=== PATIENT | male | born 1965 | race Caucasian/White ===

== ENCOUNTER 2016-05-21 11:30 | Day surgery (SDC) | payer OTHER ==
[~2016-05-21] VITALS: Ht 188 cm; Wt 73.8 kg
[~2016-05-21 11:30] MED LIST: CeFAZolin Inj 2 GM in IV Premix 1 EACH IV ONE; GABA-502 PO; GABA600T2 PO; GENT30CR TP; INSU100I13 SUBQ; LISI10TA PO; Lactated Ringer's 1,000 ML IV SCH; METF500T4 PO; OXYC-466 PO; OXYC15TA79 PO; SIMV10TA4 PO
[2016-05-21] MEDS ORDERED: fentaNYL-PF 50 mCg/mL 2 mL Inj ONE (11:31)
[2016-05-21] MEDS ORDERED: Propofol 10,000 mCg/mL 20 mL Inj ONE (11:31)
[2016-05-21] MEDS ORDERED: Phenylephrine/NS 100 mCg/mL 10 mL Syringe IVPUSH ONE (11:31)
[2016-05-21] MEDS ORDERED: Lidocaine PF 1% 30 mL Inj ONE (11:31)
[2016-05-21] MEDS ORDERED: EPHEDrine/NS 5 mg/mL 5 mL Syringe ONE (11:31)
[2016-05-21] MEDS ORDERED: Insulin LISPRO 300 Unit/3 mL Inj ONE (12:36)
[2016-05-21] MEDS ORDERED: CeFAZolin Inj 2 gm / 50mL D5W IV ONE (12:37)
[2016-05-21 12:43] VITALS: BP 117/75; PULSE 92; RESP 16; O2SAT 96
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
[2016-05-21] MEDS ORDERED: Lactated Ringer's 1,000 ML IV SCH (13:58)
[2016-05-21] MEDS ORDERED: Lactated Ringer's 500 ML IV PRN (13:58)
[2016-05-21] MEDS ORDERED: HYDROmorphone 1 mg/mL Inj IVPUSH PRN (14:00)
[2016-05-21] MEDS ORDERED: EPHEDrine Sulfate 50 mg/mL Inj IVPUSH PRN (14:00)
[2016-05-21] MEDS ORDERED: hydrALAZINE 20 mg/mL Inj IVPUSH PRN (14:00)
[2016-05-21] MEDS ORDERED: Ondansetron 2 mg/mL 2 mL Inj IVPUSH PRN (14:00)
[2016-05-21] MEDS ORDERED: Phenylephrine 10,000 mCg/mL Inj IVPUSH PRN (14:00)
[2016-05-21] MEDS ORDERED: MetoCLOpramide 5 mg/mL 2 mL Inj IVPUSH PRN (14:00)
[2016-05-21] MEDS ORDERED: fentaNYL-PF 50 mCg/mL 2 mL Inj IVPUSH PRN (14:00)
[2016-05-21] MEDS ORDERED: Labetalol 5 mg/mL 4 mL Inj IV PRN (14:00)
[2016-05-21] MEDS ORDERED: Lidocaine 2%-Epi 1:100,000 20 mL Inj NERVEBLOCK ONE (14:25)
[2016-05-21 15:25] VITALS: BP 142/84; PULSE 78; RESP 15; O2SAT 99
[2016-05-21 15:28] VITALS: BP 125/77; PULSE 84; RESP 16; O2SAT 99
[2016-05-21] MEDS ORDERED: HYDR2TAB28 PO (15:32)
--- NOTE | 2016-05-21 15:40 | PCM.PODPO ---
Podiatry Operative Report Date of Service: May 21, 2016 Date of Service May 21, 2016 Pre Operative Diagnosis Chronic diabetic ulcer sub 5th metatarsal head with metatarsalgia, left foot Post Operative Diagnosis Chronic diabetic ulcer sub 5th metatarsal head with metatarsalgia, left foot Procedure Left 5th metatarsal osteotomy Left plantar diabetic ulcer excision through skin and subcutaneous tissue. Surgeon Surgeon: Katty Bello DPM Assistants: None Indication for Procedure Pain, non-healing ulcer Findings Adhesions, hypertrophic 5th MTP joint capsule, dorsally subluxed 5th toe. Details of Procedure The patient was identified in the preoperative holding area and brought back to the operating room. He was placed on the operating table in supine position. IV sedation was initiated and the time out protocol completed. He was converted to general anesthesia due to restless legs. The patients name and site of surgery were confirmed. The left foot was prepped and draped in the usual aseptic manner. Local anesthetic was administered in the 5th ray distribution No tourniquet was necessary. Bleeding vessels were cauterized as needed and neurovascular structures retracted where possible throughout the procedure. The incision was made over the 5th metatarsophalangeal joint, deepened to joint capsule. The capsule was incised linearly, reflected laterally off of the metatarsal head and neck, and retracted. A bone saw was used to create a linear osteotomy from distal dorsal to proximal plantar surface and another parallel one to remove a section of bone, significant shortening and dorsiflexion of the metatarsal head achieved, then fixated temporarily with a K-wire. Cortical screw fixation failed, and 2 crossed K-wires were inserted across the osteotomy and overhanging bone removed with a rongeur. The K-wires were left slightly prominent. The plantar ulcer 1cm x 0.8cm and 0.5cm deep was excised through skin and subcutaneous tissue to a size of 1.2cm x1cm and 0.7cm deep to achieve a viable base. Irrigation was performed with normal saline. The deep soft tissue was reapproximated with Vicryl suture, the skin closed with Prolene. Dressing consisted of sterile silk, saline moistened gauze, Kerlix and lightly compressed Coban. The patient was weaned off of anesthesia and transported to the recovery room with vital signs stable and vascular status to the operative foot intact. Grafts, Implants: Implants-See Implant Record Complications There were no periprocedural complications identified. Condition Stable Anesthetic Administered: GA Drains: None Catheters: None Output, Estimated Blood Loss: 10 (ml) Blood Admin during surgery: No Surgical Cast or Splint: Post-op Boot Surgical Specimen Removed: No Specimen sent to Pathology: No Post Operative Plan Touchdown weightbearing with postop shoe in place. Keep operative dressing clean , dry, and intact. Hydromorphone to bridge perioperative pain control, then wean off to Percocet and wean off completely within 30 days. Katty Bello DPM May 21, 2016 15:40
[2016-05-21 15:43] VITALS: BP 128/93; PULSE 95; RESP 16; O2SAT 97
--- NOTE | 2016-05-21 15:43 | PCM.ANEP1 ---
Post Anesthesia Phase 1 PACU Phase 1 Assessment Date of Service: May 21, 2016 Vital Signs Vital Signs Date Time Temp Pulse Resp B/P Pulse Ox O2 Delivery O2 Flow Rate FiO2 05/21/16 15:28 84 16 125/77 99 Simple Mask 8 05/21/16 15:25 36.3 78 15 142/84 99 Simple Mask 8 05/21/16 12:43 36.8 92 16 117/75 96 Room Air Anesthetic Administered: GA Level of Alertness: Awake, talking DENNISON's with Equal Strength: Yes Pain: Yes Nausea or Vomiting: No Oxygen Delivery: Simple Mask Lungs: Clear to Auscultation Reji Hayward MD May 21, 2016 15:43
--- NOTE | 2016-05-21 15:43 | PCM.ANEP2 ---
Post Anesthesia Evaluation ASA/CMS Post Anesthesia Date of Service: May 21, 2016 VS in Patient's Normal Range?: Yes Resp Stable; Airway Patent?: Yes CV Function & Hydration Stable: Yes Mental Status Recovered?: Yes Pain control Satisfactory?: Yes N/V Control Satisfactory?: Yes Reji Hayward MD May 21, 2016 15:43
[2016-05-21 16:05] VITALS: BP 147/86; PULSE 84; RESP 16; O2SAT 100
== END 2016-05-21 23:59 | disposition home or self-care (01) ==
LOC: SAS 11:30
PROVIDERS: ATTEND Podiatrist
DX: E11.621 Type 2 diabetes mellitus with foot ulcer (principal); J45.909 Unspecified asthma, uncomplicated; R51 Headache; R12 Heartburn; F32.9 Major depressive disorder, single episode, unspecified; F17.210 Nicotine dependence, cigarettes, uncomplicated; Z79.4 Long term (current) use of insulin; Z79.899 Other long term (current) drug therapy
CPT/HCPCS: 28308; J0690; J1815; J2250; J2370; J3010; J7120

== ENCOUNTER → 2016-11-05 | Day surgery (SDC) | payer OTHER ==
[~2016-11-05] VITALS: Ht 188 cm; Wt 75.0 kg
[~2016-11-05] MED LIST changes: +Bupivacaine-MPF 0.5% 30 mL Inj INFILTRATE ONE; +Dexamethasone 4 mg/mL Inj IVPUSH PRN; +EPHEDrine Sulfate 50 mg/mL Inj IVPUSH PRN; -GABA-502 PO; -GABA600T2 PO; -GENT30CR TP; +HYDROmorphone 1 mg/mL Inj IVPUSH PRN; +INSU100I18 SUBQ; +Labetalol 5 mg/mL 20 mL Inj IV PRN; +Lactated Ringer's 500 ML IV PRN; +Lidocaine 1%-Epi 1:100,000 20 mL Inj NERVEBLOCK ONE; +MetoCLOpramide 5 mg/mL 2 mL Inj IVPUSH PRN; -OXYC-466 PO; -OXYC15TA79 PO; +OXYC5CAP4 PO; +Ondansetron 2 mg/mL 2 mL Inj IVPUSH PRN; +PREG25CA PO; +Phenylephrine 10,000 mCg/mL Inj IVPUSH PRN; +Propofol 10 mg/mL 20 mL Inj ONE; +fentaNYL-PF 50 mCg/mL 2 mL Inj IVPUSH PRN; +fentaNYL-PF 50 mCg/mL 2 mL Inj ONE; +oxyCODONE-Acetamin 5-325 mg Tablet PO PRN
[2016-11-05] MEDS: Lactated Ringer's 1,000 ML IV SCH ×2 (06:12→07:25)
[2016-11-05 06:27] VITALS: BP 101/62; PULSE 81; RESP 18; O2SAT 99
--- NOTE | 2016-11-05 06:40 | PCM.HPANE ---
Patient Data Surgeon Admitting Provider: Attending Provider:Katty Bello DPM Primary Care Physician:Pamela Christianson MD Other Provider:Janis Leyva Anesthesia Reason for Visit Left Foot Hardware Complication Ht/WT & BMI Height (Feet): 6 Height (Inches): 2.00 Weight (Kilograms): 75.0 Body Mass Index 21.00 Allergies Coded Allergies: No Known Allergies (Verified Allergy, Unknown, 11/04/16) Past Anesthesia History Anesthesia History: Denies:: Abnormal Airway, Anesthesia Reactions, Difficult Intubation, Fam Anesthesia Reaction, Fam Malignant Hypertherm, Malignant Hyperthermia Diabetes History Hx Diabetes?: Yes Type of Diabetes: Type II Glycemic Control: Insulin & Oral Medication MRSA MRSA: No Medications Reported Medications Insulin Lispro (HumaLOG U100 Insulin Pen)100 Unit/1 Ml Insuln.pen10 Unit SUBQ TIDWM #1 PENINJ Ref 0 Blood Sugar Lispro Correction <151 0 units 151-175 1 unit 176-200 2 units 201-225 3 units 226-250 4 units 251-275 5 units 276-300 6 units 301-325 7 units 326-350 8 units 351-375 9 units 376-400 10 units >400 12 units Check blood sugars before meals and at bedtime. Use correction factor only before meals. 11/05/16 Pregabalin (Lyrica)25 Mg Ptarllt39 Mg PO BID 30 Days Ref 0 11/04/16 oxyCODONE 5 Mg Enkqyvq05 Mg PO Q4H PRN For Pain Ref 0 11/04/16 Insulin Glargine (Lantus U100 Solostar Insulin Pen)100 Unit/1 Ml Insuln.pen40 Unit SUBQ QPM #1 PENINJ Ref 0 05/17/16 Lisinopril 10 Mg Hahktr76 Mg PO DAILY 11/26/15 Simvastatin 10 Mg Knwqsy89 Mg PO DAILY 11/26/15 Metformin 500 Mg Tablet1,000 Mg PO BID 10/25/15 Discontinued Reported Medications oxyCODONE 5 Mg Capsule5 Mg PO Q4H PRN For Pain Ref 0 11/04/16 Gabapentin 600 Mg Wykdbb341 Mg PO HS Ref 0 POSTOP 05/17/16 oxyCODONE 15 Mg Uhpxjq80 Mg PO Q6H PRN For Pain Ref 0 POSTOP 05/17/16 oxyCODONE-Acetaminophen 10-325 mg 1 Each Tablet1 Tablet PO Q6H PRN For Pain Ref 0 05/17/16 Gentamicin Sulfate 15 Gm Cream..g.15 Gm TP DAILY 0.1% 05/17/16 Gabapentin 300 Mg Vqcinlf109 Mg PO HS Ref 0 01/12/16 Discontinued Scripts Hydromorphone 2 Mg Tablet2 Mg PO Q4H PRN For Breakthrough Pain #48 TABLET Ref 0 Prov:Katty Bello DPM 05/21/16 History History of ENT Problems?: No HEENT History: Denies:: Abnormal Airway Difficult Intubation Dysphagia Hearing Problem Sinus Problem TMJ Denture Type: None Full- Upper Partial- Upper Teeth Condition: Within Normal Limits Hx of Heart Problems?: Yes Cardiovascular History: Positive for:: Hypertension Denies:: Cardiac Surgery Chest Pain Congestive Heart Failure Edema Heart Murmur Irregular Heartbeat Pacemaker Thrombophlebitis Hx of Respiratory Problem?: Yes Respiratory History: Positive for:: Asthma (CHILDHOOD) Denies:: COPD Chest Surgery Dyspnea Emphysema Hemoptysis Oxygen Administration Pneumonia Pulmonary Embolism Tuberculosis Use of C-PAP Machine Hx Neurologic Problems?: Yes Neurological History: Denies:: Alzheimer's Disease CVA Dementia Dizziness Headaches Multiple Sclerosis Parkinson's Disease Seizures TIA Hx of GI Problems?: Yes Hx of Problems?: No Genitourinary History: Denies:: HX of Hemodialysis Kidney Stones Urinary Tract Infection HX of Peritoneal Dialysis: No Male Hx: Denies:: Prostate Problems Scrotal Mass Testicular Surgery Skin History: Denies:: History Skin Disorders? Pressure Ulcers Hx Musculoskeletal Problems?: Yes Musculoskeletal History: Positive for:: Back Injury (fell down stairs 3 week ago fx L1) Joint Replacement (left hand digit #3) Musculoskeletal Trauma (fell down stairs 3 week ago fx L1) Denies:: Degenerative Joint Fibromyalgia Myasthenia Gravis Osteoarthritis Rheumatoid Arthritis Systemic Lupus Hx of Psycho/Social Problems?: No Psycho Social History: Positive for:: Hx Depression Denies:: Anxiety Bipolar Disorder Suicide Attempt Hx Surgeries?: Yes (foot ulcer) Hx Any Other Health Problems?: Yes Other History: Positive for:: Hospitalization (may 2016) Denies:: Cancer Endocrine Disease Thyroid Disease History Blood Transfusions: Positive for:: Accept Blood Products? Denies:: Blood Transfusions Hx Diabetes: Yes Hx Alcohol Use: NoHx Substance Use: Yes (ocassionally) Smoking Status: Light Tobacco Smoker Have You Smoked inLast 12 mo: YesApprox How Many Cigarettes/day: 10 Stop/Bang S-Snoring: Do You Snore Loudly: Yes T-Tired: feel tired, fatigued: Yes O-Obsered: Observed not breath: No P-Blood Pressure: treated: Yes B- Body Mass Index > 35 kg/m2: No A- Age over 50: Yes N- Neck Large Circumference: No G- Gender Male: Yes ROB Total Score: 5 ROB Risk Assessment: High Risk, =/>3 Yes ROB Category 4 OutPt Procedure: Yes Risk Assessment Category Category 1A: Patient has history of documented sleep apnea, and HAS NOT received any narcotic, sedative or anesthesia administration during this stay. Category 1B: Patient has history of documented sleep apnea, and HAS received any narcotic , sedative or anesthesia administration during this stay Category 2: Patient has SUSPECTED Obstructive Sleep Apnea, and HAS received any narcotic , sedative or anesthesia administration during this stay. Category 3: Patient has SUSPECTED Obstructive Sleep Apnea and HAS NOT received narcotic, sedative or anesthesia administration during this stay. Category 4: Outpatient in Procedural Areas with known sleep apnea or who screen positive for High Risk via the STOP/BANG questionnaire. Exam Exam Vital Signs Vital Signs Date Time Temp Pulse Resp B/P Pulse Ox O2 Delivery O2 Flow Rate FiO2 11/05/16 06:27 36.3 81 18 101/62 99 Room Air General Appearance: Alert, Oriented X3, Cooperative, No Acute Distress HEENT/AIRWAY: MP 2 Lungs: Clear to Auscultation, Normal Air Movement Heart: Exam Unremarkable, Regular Rate/Rhythm, No Murmurs/Rubs/Gallops Meds/Labs/Diagnostics Admission Meds Current Medications Lactated Ringer's (Lr) 1,000 ml @ 120 mls/hr Q8H20M IV Last administered on t 06:12; Start 11/05/16 at 05:00; Stop 11/05/16 at 13:19 Plan Impression Patient chart reviewed, patient interviewed and anesthestic plan with risks, benefits, and alternatives discussed, and informed consent obtained. ASA Physical Status: ASA2 Mod Systemic Disease Anesthetic Plan: MAC Bene/Risks/Altern/Consents: Yes HP Complete Prior to Induction: Yes Amanuel Jarquin MD Nov 05, 2016 06:40
[2016-11-05 08:08] VITALS: BP 91/59; PULSE 80; RESP 13; O2SAT 97
[2016-11-05 08:10] VITALS: BP 91/62; PULSE 83; RESP 17; O2SAT 98
[2016-11-05 08:15] VITALS: BP 93/63; PULSE 75; RESP 21; O2SAT 97
--- NOTE | 2016-11-05 08:20 | PCM.PODPO ---
Podiatry Operative Report Date of Service: Nov 05, 2016 Date of Service Nov 05, 2016 Pre Operative Diagnosis Hardware loosening, osteolysis, left 5th metatarsal Post Operative Diagnosis Hardware loosening, osteolysis, left 5th metatarsal, likely osteomyelitis Procedure Excision of 2 K wires, bone culture, left fifth metatarsal Surgeon Surgeon: Katty Bello DPM Assistants: Thomas Schneider, 4 Indication for Procedure Recurrent ulceration through lateral left foot incision with radiographic changes of osteolysis Findings Degenerated bone, ulcer probing to bone with sinus tract. Loose K wires. Loss of normal anatomic contour of the fifth metatarsal. No purulence. Details of Procedure The patient was identified in the preoperative holding area and brought back to the operating room. He was placed on the operating table in supine position. The timeout protocol was completed in the patient's name and site of surgery identified. IV sedation was initiated, the patient's foot anesthetized with 0.5 % Marcaine plain. The left foot was prepped and draped in usual aseptic manner. An incision was made on the dorsolateral aspect of the left fifth metatarsal, excising the open ulceration in the process. The sinus tract was identified bleeding straight to the portion of bone with erosions evident on x-ray. Part of the previous osteotomy was not healed. The 2 K wires were easily identified and removed. The bone was found to be soft and degenerated. A small fragment of bone was excised with the rongeur and sent for culture. The remaining soft portion of bone was also excised, where identifiable from periosteal reaction. The wound was irrigated with 1 L of normal saline. A closure was done with deep vertical sutures and simple interrupted sutures using 3-0 Prolene, avoiding absorbable suture to avoid future infection. The wound was cleansed, a dressing consisting of Santo silk, 4 x 4 normal saline moistened gauze, Kerlix , and Coban was applied. The left foot was placed into a postoperative shoe, the patient weaned off of IV sedation and taken to the PACU with vital signs stable and the vascular status to the left foot appearing intact. Periods of sleep apnea were identified during the sedation period. Grafts, Implants: None Complications There were no periprocedural complications identified. Condition Stable Anesthetic Administered: MAC Catheters: None Output, Estimated Blood Loss: 10 (ml) Blood Admin during surgery: No Surgical Specimen Removed: Yes Specimen sent to Pathology: No Surgical Specimen description: Bone culture, fragment of fifth metatarsal Post Operative Plan The patient will be weightbearing as tolerated in a postoperative shoe. He is to keep the dressing clean, dry, and intact until his follow-up visit in 1 week. He takes oxycodone on a recurrent basis and no further additional opiate medication will be prescribed today. Katty Bello DPM Nov 05, 2016 08:20
--- NOTE | 2016-11-05 08:24 | PCM.ANEP1 ---
Post Anesthesia PACU Phase 1 Assessment Vital Signs Vital Signs Date Time Temp Pulse Resp B/P Pulse Ox O2 Delivery O2 Flow Rate FiO2 11/05/16 08:15 75 21 93/63 97 Room Air 11/05/16 08:10 83 17 91/62 98 Room Air 11/05/16 08:08 36.7 80 13 91/59 97 Room Air 11/05/16 06:27 36.3 81 18 101/62 99 Room Air Anesthetic Administered: MAC Level of Alertness: Awake, talking DENNISON's with Equal Strength: Yes Pain: No Nausea or Vomiting: No CV Function & Hydration Stable: Yes Airway Device: Lungs: Clear to Auscultation, Normal Air Movement PACU Phase 2 Assessment Complications: No Follow up Care: No Patient Instructions Provided: N/A Amanuel Jarquin MD Nov 05, 2016 08:24
[2016-11-05 08:26] VITALS: BP 102/85; PULSE 79; RESP 16; O2SAT 100
== END | disposition home or self-care (01) ==
LOC: SAS 05:51
PROVIDERS: ATTEND Podiatrist
DX: T85.848D Pain due to other internal prosthetic devices, implants and grafts, subsequent encounter (principal); T84.038D Mechanical loosening of other internal prosthetic joint, subsequent encounter; M89.572 Osteolysis, left ankle and foot; E11.42 Type 2 diabetes mellitus with diabetic polyneuropathy; Z89.421 Acquired absence of other right toe(s); F17.210 Nicotine dependence, cigarettes, uncomplicated; Z79.4 Long term (current) use of insulin; Z79.84 Long term (current) use of oral hypoglycemic drugs